=== PATIENT | female | born 1945 | race Caucasian/White ===

== ENCOUNTER 2016-12-17 08:49 | Day surgery (SDC) | payer MEDICARE, BC ==
[~2016-12-17 08:49] MED LIST: Cefuroxime 10 MG/ML SYRINGE EYELF SCH; Lidocaine 1% PF 2 ML SDV INJECT SCH; Pilocarpine 4% Ophth Soln 15 ML Bot EYELF SCH
[2016-12-17] MEDS: Polymyxin B/Trimethoprim 10 ML Bottle EYELF SCH ×3 (10:14→12:05)
[2016-12-17] MEDS: Brimonidine 0.2% Ophth Soln 5 ML Bottle EYELF SCH ×3 (10:21→12:05)
--- NOTE | 2016-12-17 10:21 | PCM.PREANE ---
Preanesthetic Assessment - Anesthesia/Transfusion/Family Hx Anesthesia History: Prior Anesthesia Without Reaction Family History of Anesthesia Reaction: No Transfusion History: Unknown - Review of Systems General: No Symptoms Pulmonary: No Symptoms Cardiovascular: Other (HTN, high cholesterol, current meds) Gastrointestinal: Other (acid reflux, no meds and controlled) Neurological: No Symptoms Other: Reports: Depression - Physical Assessment NPO Status Date: 12/16/16 NPO Status Time: 23:55 Pulse: 63 O2 Sat by Pulse Oximetry: 93 Respiratory Rate: 16 Blood Pressure: 105/65 Vital Signs: Last Vital Signs Temp 36.1 C 12/17/16 10:00 Pulse 63 12/17/16 10:00 Resp 16 12/17/16 10:00 BP 105/65 12/17/16 10:00 Pulse Ox 93 L 12/17/16 10:00 Height: 1.57 m Weight: 63.503 kg ASA Class: 2 Mental Status: Alert & Oriented x3 Airway Class: Mallampati = 2 Dentition: Reports: Normal Dentition Thyro-Mental Finger Breadths: 3 Mouth Opening Finger Breadths: 3 ROM/Head Extension: Full Lungs: Clear to Auscultation, Normal Respiratory Effort Cardiovascular: Regular Rate, Regular Rhythm - Allergies Allergies/Adverse Reactions: Allergies Allergy/AdvReac Type Severity Reaction Status Date / Time No Known Allergies Allergy Verified 12/16/16 11:54 - Blood Blood Available: No Product(s) Available: None - Anesthesia Plan Pre-Op Medication Ordered: None - Acknowledgements Anesthesia Type Planned: MAC Pt an Appropriate Candidate for the Planned Anesthesia: Yes Alternatives and Risks of Anesthesia Discussed w Pt/Guardian: Yes Pt/Guardian Understands and Agrees with Anesthesia Plan: Yes PreAnesthesia Questionnaire - HOME MEDS Home Medications: Home Meds Hydrochlorothiazide 25 mg PO DAILY 12/16/16 [History] Lisinopril 40 mg PO DAILY 12/16/16 [History] Omeprazole 20 mg PO DAILY 12/16/16 [History] Oxybutynin Chloride [Ditropan Xl] 10 mg PO DAILY 12/16/16 [History] Sertraline [Zoloft] 75 mg PO DAILY 12/16/16 [History] - CURRENT (IN HOUSE) MEDS Current Meds: Current Medications Brimonidine Tartrate (Alphagan 0.2% [facility]) 0 ml EYELF ASDIRECTED MAEGAN Stop: 12/17/16 18:00 Cefuroxime Sodium (Zinacef) 0 mg EYELF ASDIRECTED MAEGAN Stop: 12/17/16 18:00 Lidocaine HCl (Xylocaine-Mpf 1%) 10 ml INJECT ASDIRECTED MAEGAN Stop: 12/17/16 18:00 Phenylephrine HCl (Jose F-Synephrine 2.5% Ophth Soln) 0 ml EYELF ASDIRECTED MAEGAN Stop: 12/17/16 18:00 Pilocarpine HCl (Pilocar 4% Ophth Soln) 0 ml EYELF ASDIRECTED MAEGAN Stop: 12/17/16 18:00 Polymyxin/Trimethoprim Sulfate (Polytrim Ophth Soln) 0 ml EYELF ASDIRECTED MAEGAN Stop: 12/17/16 18:00 Last Admin: 12/17/16 10:14 Dose: 1 drop Tetracaine HCl (Tetracaine 0.5% Steri-Unit Fiorella) 0 ml EYELF ASDIRECTED MAEGAN Stop: 12/17/16 18:00 Tropicamide (Mydriacyl 1% Ophth Soln) 0 ml EYELF ASDIRECTED MAEGAN Stop: 12/17/16 18:00
[2016-12-17] MEDS: Phenylephrine 2.5% Ophth Soln 2 ML Bot EYELF SCH ×5 (10:25→11:43)
[2016-12-17] MEDS: Tetracaine HCl/PF 0.5% 4 ML Bottle EYELF SCH ×2 (11:38→11:53)
--- NOTE | 2016-12-17 12:07 | PCM48HPAN ---
Post Anesthesia Note - EVALUATION WITHIN 48HRS OF ANESTHETIC Vital Signs in Normal Range: Yes Patient Participated in Evaluation: Yes Respiratory Function Stable: Yes Airway Patent: Yes Cardiovascular Function Stable: Yes Hydration Status Stable: Yes Pain Control Satisfactory: Yes Nausea and Vomiting Control Satisfactory: Yes Mental Status Recovered: Yes
[2016-12-17 12:27] VITALS: BP 96/54
== END 2016-12-17 12:17 | disposition home or self-care (01) ==
LOC: JD.SDS 08:49
PROVIDERS: ATTEND Ophthalmology
DX: H25.812 Combined forms of age-related cataract, left eye (principal); H16.223 Keratoconjunctivitis sicca, not specified as Sjogren's, bilateral; H16.103 Unspecified superficial keratitis, bilateral; H02.831 Dermatochalasis of right upper eyelid; H02.834 Dermatochalasis of left upper eyelid; H31.093 Other chorioretinal scars, bilateral; M19.90 Unspecified osteoarthritis, unspecified site; F32.9 Major depressive disorder, single episode, unspecified; E78.00 Pure hypercholesterolemia, unspecified; I10 Essential (primary) hypertension; F41.9 Anxiety disorder, unspecified; Z83.518 Family history of other specified eye disorder; Z98.51 Tubal ligation status; Z90.89 Acquired absence of other organs; Z98.890 Other specified postprocedural states; Z79.899 Other long term (current) drug therapy
CPT/HCPCS: 66984; A9270; C1780; J0697

== ENCOUNTER 2017-01-12 06:56 | Day surgery (SDC) | payer MEDICARE, BC ==
[~2017-01-12 06:56] MED LIST changes: -Cefuroxime 10 MG/ML SYRINGE EYELF SCH; +Cefuroxime 10 MG/ML SYRINGE EYERT SCH; -Pilocarpine 4% Ophth Soln 15 ML Bot EYELF SCH; +Pilocarpine 4% Ophth Soln 15 ML Bot EYERT SCH
[2017-01-12] MEDS: Polymyxin B/Trimethoprim 10 ML Bottle EYERT SCH ×3 (07:12→08:28)
[2017-01-12] MEDS: Brimonidine 0.2% Ophth Soln 5 ML Bottle EYERT SCH ×3 (07:17→08:28)
--- NOTE | 2017-01-12 07:18 | PCM.PREANE ---
Preanesthetic Assessment - Anesthesia/Transfusion/Family Hx Anesthesia History: Prior Anesthesia Without Reaction Family History of Anesthesia Reaction: No Transfusion History: Unknown Intubation History: Unknown - Review of Systems General: No Symptoms Pulmonary: No Symptoms Cardiovascular: No Symptoms Gastrointestinal: No Symptoms Neurological: No Symptoms Other: Reports: None - Physical Assessment NPO Status Date: 01/11/17 NPO Status Time: 20:00 Pulse: 65 O2 Sat by Pulse Oximetry: 94 Respiratory Rate: 16 Blood Pressure: 118/61 Temperature: 97.6 C Vital Signs: Last Vital Signs Temp 36.4 C 01/12/17 07:00 Pulse 65 01/12/17 07:00 Resp 16 01/12/17 07:00 BP 118/61 01/12/17 07:00 Pulse Ox 94 L 01/12/17 07:00 Height: 1.57 m Weight: 63.503 kg ASA Class: 2 Mental Status: Alert & Oriented x3 Airway Class: Mallampati = 1 Dentition: Reports: Normal Dentition Thyro-Mental Finger Breadths: 3 Mouth Opening Finger Breadths: 3 ROM/Head Extension: Full Lungs: Clear to Auscultation, Normal Respiratory Effort Cardiovascular: Regular Rate, Regular Rhythm - Allergies Allergies/Adverse Reactions: Allergies Allergy/AdvReac Type Severity Reaction Status Date / Time No Known Allergies Allergy Verified 01/11/17 13:37 - Acknowledgements Anesthesia Type Planned: MAC Pt an Appropriate Candidate for the Planned Anesthesia: Yes Alternatives and Risks of Anesthesia Discussed w Pt/Guardian: Yes Pt/Guardian Understands and Agrees with Anesthesia Plan: Yes PreAnesthesia Questionnaire HEENT History: Reports: Cataract Cardiovascular History: Reports: High Cholesterol Respiratory History: Reports: None Gastrointestinal History: Reports: GERD (pt states occastional heartburn) Genitourinary History: Reports: None Musculoskeletal History: Reports: Arthritis Neurological History: Reports: None Psychiatric History: Reports: Depression Endocrine/Metabolic History: Reports: None Hematologic History: Reports: None Immunologic History: Reports: None Oncologic (Cancer) History: Reports: None Dermatologic History: Reports: None - Infectious Disease History Infectious Disease History: Reports: None - Past Surgical History Head Surgeries/Procedures: Reports: None HEENT Surgical History: Reports: Tonsillectomy, Other (See Below) (vocal cord polyps) Cardiovascular Surgical History: Reports: None Respiratory Surgical History: Reports: None GI Surgical History: Reports: None Female Surgical History: Reports: Tubal Ligation Male Surgical History: Reports: None Endocrine Surgical History: Reports: None Neurological Surgical History: Reports: None Musculoskeletal Surgical History: Reports: None Oncologic Surgical History: Reports: None Dermatological Surgical History: Reports: None - Past Imaging History Past Imaging History: Reports: None - SUBSTANCE USE Smoking Status *Q: Never Smoker - HOME MEDS Home Medications: Home Meds Hydrochlorothiazide 25 mg PO DAILY 12/16/16 [History] Lisinopril 40 mg PO DAILY 12/16/16 [History] Omeprazole 20 mg PO DAILY 12/16/16 [History] Oxybutynin Chloride [Ditropan Xl] 10 mg PO DAILY 12/16/16 [History] Sertraline [Zoloft] 75 mg PO DAILY 12/16/16 [History] - CURRENT (IN HOUSE) MEDS Current Meds: Current Medications Brimonidine Tartrate (Alphagan 0.2% Oph Soln) 0 ml EYERT ASDIRECTED MAEGAN Stop: 01/12/17 18:00 Cefuroxime Sodium (Zinacef) 0 mg EYERT ASDIRECTED MAEGAN Stop: 01/12/17 18:00 Lidocaine HCl (Xylocaine-Mpf 1%) 1 ml INJECT ASDIRECTED MAEGAN Stop: 01/12/17 18:00 Phenylephrine HCl (Jose F-Synephrine 2.5% Ophth Soln) 0 ml EYERT ASDIRECTED MAEGAN Stop: 01/12/17 18:00 Pilocarpine HCl (Pilocar 4% Ophth Soln) 0 ml EYERT ASDIRECTED MAEGAN Stop: 01/12/17 18:00 Polymyxin/Trimethoprim Sulfate (Polytrim Ophth Soln) 0 ml EYERT ASDIRECTED MAEGAN Stop: 01/12/17 18:00 Tetracaine HCl (Tetracaine 0.5% Steri-Unit Fiorella) 0 ml EYERT ASDIRECTED MAEGAN Stop: 01/12/17 18:00 Tropicamide (Mydriacyl 1% Oph Soln) 0 ml EYERT ASDIRECTED MAEGAN Stop: 01/12/17 18:00
[2017-01-12] MEDS: Phenylephrine 2.5% Ophth Soln 2 ML Bot EYERT SCH ×5 (07:21→08:11)
[2017-01-12] MEDS: Tetracaine HCl/PF 0.5% 4 ML Bottle EYERT SCH ×2 (07:59→08:17)
[2017-01-12 08:41] VITALS: BP 127/60
== END 2017-01-12 08:37 | disposition home or self-care (01) ==
LOC: JD.SDS 06:56
PROVIDERS: ATTEND Ophthalmology
PROC: 08RJ3JZ Replacement of Right Lens with Synthetic Substitute, Percutaneous Approach (ICD-10-PCS; principal; 2017-01-12)
DX: H25.811 Combined forms of age-related cataract, right eye (principal); M19.90 Unspecified osteoarthritis, unspecified site; F32.9 Major depressive disorder, single episode, unspecified; E78.00 Pure hypercholesterolemia, unspecified; I10 Essential (primary) hypertension; Z98.51 Tubal ligation status; Z96.1 Presence of intraocular lens; Z98.42 Cataract extraction status, left eye; Z90.89 Acquired absence of other organs; Z98.890 Other specified postprocedural states; Z79.899 Other long term (current) drug therapy; Z83.518 Family history of other specified eye disorder
CPT/HCPCS: 66984; A9270; C1780; J0697

== ENCOUNTER 2021-11-22 07:38 | Emergency (ER) | payer MEDICARE, BC ==
[2021-11-22 07:55] VITALS: BP 126/67; PULSE 71
== END 2021-11-22 08:55 | disposition home or self-care (01) ==
LOC: JD.ED 07:38
DX: M10.9 Gout, unspecified (principal); E78.00 Pure hypercholesterolemia, unspecified; K21.9 Gastro-esophageal reflux disease without esophagitis; Z79.899 Other long term (current) drug therapy
CPT/HCPCS: 73562-26-LT; 73562-LT; 99283